=== PATIENT | female | born 1995 | race American Indian/Alaskan Native ===

== ENCOUNTER 2017-03-25 23:51 | Emergency (ER) | payer MEDICAID ==
--- NOTE | 2017-03-26 00:18 | C.PDOC ---
History Of Present Illness 22 year old female who is 6 weeks presents to the ER with a complaint of right ear pain, sore throat for the past 3 days. Patient states she woke up tonight from a nap with a lot of mucous in her throat and felt she had trouble swallowing. Patient reports she tried to clean her right ear with a nisreen pin yesterday which made the pain worse. She also notes she is currently living in an apartment with dry heat. Denies fever, trouble breathing, cough, or nasal congestion. Time Seen by Provider: 03/26/17 00:07 Chief Complaint (Nursing): Shortness Of Breath History Per: Patient History/Exam Limitations: no limitations Onset/Duration Of Symptoms: Days Current Symptoms Are (Timing): Still Present Initiating Event: Other (Not known) Current Respiratory Medications: None Associated Symptoms: Other (Right ear pain, sore throat). denies: Fever, Chest Pain, Bloody Cough Recent travel outside of the [place]: No Past Medical History Reviewed: Historical Data, Nursing Documentation, Vital Signs Vital Signs: Last Vital Signs Temp 98.5 F 03/25/17 23:56 Pulse 96 H 03/25/17 23:56 Resp 16 03/26/17 00:34 BP 129/72 03/25/17 23:56 Pulse Ox 97 03/26/17 00:34 - Medical History PMH: Asthma, HTN Surgical History: Appendectomy Family History: States: Unknown Family Hx - Social History Hx Alcohol Use: Yes Hx Substance Use: No Review Of Systems Constitutional: Negative for: Fever, Chills ENT: Positive for: Ear Pain, Throat Pain. Negative for: Ear Discharge, Nose Congestion Respiratory: Negative for: Cough Physical Exam - Physical Exam Appears: Non-toxic, No Acute Distress Skin: Normal Color, Warm, Dry Head: Atraumatic, Normacephalic Eye(s): bilateral: Normal Inspection Ear(s): Bilateral: TM Obscured By Wax Nose: Normal Oral Mucosa: Moist Throat: Erythema, Exudate, Other (Enlarged tonsils) Neck: Normal, Supple Lymphatic: Adenopathy (Small cervical) Chest: Symmetrical, No Tenderness Cardiovascular: Rhythm Regular Respiratory: Normal Breath Sounds, No Rales, No Rhonchi, No Wheezing Gastrointestinal/Abdominal: Soft, No Tenderness Neurological/Psych: Oriented x3, Normal Speech ED Course And Treatment - Laboratory Results Interpretation Of Abnormal: Rapid strep negative O2 Sat by Pulse Oximetry: 97 (Room air) Pulse Ox Interpretation: Normal Progress Note: Rapid strep ordered. Disposition Counseled Patient/Family Regarding: Studies Performed, Diagnosis, Need For Followup - Disposition Referrals: [facility] [Outside] Disposition: HOME/ ROUTINE Disposition Time: 00:49 Condition: STABLE Additional Instructions: Take Tylenol for pain if needed. Use Debrox in your ear to clear the wax. Encourage plenty of fluids and put a humidifier in your room to help breathing at night. Instructions: Cerumen Impaction (ED), Pharyngitis (ED) Forms: [employer] (South African) - Clinical Impression Clinical Impression: Impacted cerumen of both ears, Sore throat - Scribe Statement The provider has reviewed the documentation as recorded by the Scribzonia Mejia All medical record entries made by the Scribe were at my direction and personally dictated by me. I have reviewed the chart and agree that the record accurately reflects my personal performance of the history, physical exam, medical decision making, and the department course for this patient. I have also personally directed, reviewed, and agree with the discharge instructions and disposition.
[2017-03-26 01:05] VITALS: BP 126/82; PULSE 100; RESP 20; TEMP 97.9; O2SAT 100
== END 2017-03-26 01:05 | disposition home or self-care (01) ==
LOC: C.ER 23:51
DX: H61.23 Impacted cerumen, bilateral (principal); J02.9 Acute pharyngitis, unspecified; I10 Essential (primary) hypertension

== ENCOUNTER 2017-04-21 14:41 | Emergency (ER) | payer MEDICAID ==
[2017-04-21 15:12] VITALS: RESP 20; TEMP 98
[2017-04-21 17:08] LABS: BASO # 0.1 K/uL (0.0-0.2); BASO % 0.9 % (0.0-2.0); EOS # 0.3 K/uL (0.0-0.7); EOS % 3.4 % (0.0-4.0); HEMOGLOBIN 13.2 g/dL (11.0-16.0); LYMPH # 1.4 K/uL (1.0-4.3); LYMPH % 18.6 % (20.0-40.0); MEAN CELL VOLUME 85.2 fL (81.0-99.0); MEAN CORPUSCULAR HEMOGLOBIN 28.7 pg (27.0-31.0); MEAN CORPUSCULAR HGB CONC 33.6 g/dL (33.0-37.0); MEAN PLATELET VOLUME 7.7 fL (7.2-11.7); MONO # 0.5 K/uL (0.0-0.8); MONO % 6.3 % (0.0-10.0); NEUT # 5.5 K/uL (1.8-7.0); NEUT % 70.8 % (50.0-75.0); RBC 4.61 Mil/uL (3.80-5.20); RED CELL DISTRIBUTION WIDTH 13.3 % (11.5-14.5); WHITE BLOOD COUNT 7.7 K/uL (4.8-10.8)
[2017-04-21 17:13] LABS: HCG,QUALITATIVE URINE NEGATIVE (NEGATIVE)
[2017-04-21 17:19] LABS: ALB/GLOB RATIO 1.1 (1.0-2.1); ALBUMIN 4.2 g/dL (3.5-5.0); ALT/SGPT 21 U/L (9-52); AST/SGOT 24 U/L (14-36); BLOOD UREA NITROGEN 8 mg/dL (7-17); CALCIUM 9.2 mg/dl (8.6-10.4); GFR AFRICAN-AMERICAN > 60; GFR NON-AFRICAN AMERICAN > 60
[2017-04-21 17:25] LABS: SQUAMOUS EPITHIAL 8 /hpf (0-5); URINE BACTERIA OCC (<OCC); URINE BILIRUBIN NEGATIVE (NEGATIVE); URINE BLOOD 3+ (NEGATIVE); URINE CLARITY Hazy (Clear); URINE COLOR Yellow (YELLOW); URINE GLUCOSE (UA) NORMAL (Normal); URINE LEUKOCYTE ESTERASE NEG Leu/uL (Negative); URINE NITRATE NEGATIVE (NEGATIVE); URINE PROTEIN 1+ mg/dL (NEGATIVE); URINE UROBILINOGEN NORMAL mg/dL (0.2-1.0)
--- NOTE | 2017-04-21 17:39 | C.PDOC ---
History Of Present Illness 22 year old female with a Hx of lupus presents to the ER with a complaint of vaginal bleeding. Patient believes she is 9 weeks , P:0. Denies fever , chills, nausea, vomiting, or abdominal pain. Time Seen by Provider: 04/21/17 16:02 Chief Complaint (Nursing): Female Genitourinary History Per: Patient History/Exam Limitations: no limitations Current Symptoms Are (Timing): Still Present Quality Of Discomfort: Unable To Describe Associated Symptoms: Other (Vaginal bleeding). denies: Fever, Chills, Nausea, Vomiting Recent travel outside of the [place]: No : 1 Para: 0 Past Medical History Reviewed: Historical Data, Nursing Documentation, Vital Signs Vital Signs: Last Vital Signs Temp 98 F 04/21/17 15:10 Pulse 100 H 04/21/17 17:45 Resp 20 04/21/17 17:45 BP 106/71 04/21/17 17:45 Pulse Ox 97 04/21/17 17:45 - Medical History PMH: Asthma, HTN Surgical History: Appendectomy Family History: States: Unknown Family Hx - Social History Hx Alcohol Use: Yes Hx Substance Use: No Review Of Systems Constitutional: Negative for: Fever, Chills Gastrointestinal: Negative for: Nausea, Vomiting, Abdominal Pain Genitourinary: Positive for: Vaginal Bleeding. Negative for: Dysuria, Hematuria , Vaginal Discharge Physical Exam - Physical Exam Appears: Non-toxic, No Acute Distress, Other (Black female) Skin: Normal Color, Warm, Dry Head: Atraumatic, Normacephalic Eye(s): bilateral: Normal Inspection Oral Mucosa: Moist Chest: Symmetrical, No Tenderness Cardiovascular: Rhythm Regular Respiratory: Normal Breath Sounds, No Rales, No Rhonchi, No Wheezing Gastrointestinal/Abdominal: Soft, No Tenderness, Other (Does no appear gravid) Neurological/Psych: Oriented x3, Normal Speech ED Course And Treatment - Laboratory Results Result Diagrams: 04/21/17 17:03 04/21/17 17:03 O2 Sat by Pulse Oximetry: 96 (Room air) Pulse Ox Interpretation: Normal - CT Scan/US Transvaginal US Other Rad Studies (CT/US): Read By Radiologist, Radiology Report Reviewed CT/US Interpretation: Impression: No evidence of intrauterine gestational sac. If indeed the patient is based on serum beta HCG values, the sonographic findings represent either: Very early IUP; embryonic demise; ectopic gestation. Follow-up with serial quantitative serum beta HCG measurements and post OBGYN follow-up as clinically indicated, since ectopic gestation cannot be excluded based only on sonographic findings. Progress Note: Blood work, UA, tranvaginal US Medical Decision Making Medical Decision Making: NOT by Quant/Qual HCG normal pelvic US without iup/ectopic reassured. Disposition Doctor Will See Patient In The: Office Counseled Patient/Family Regarding: Studies Performed, Diagnosis - Disposition Referrals: [facility] [Outside] [facility] [Outside] Pina Smith MD [Staff Provider] - Disposition: HOME/ ROUTINE Disposition Time: 17:38 Condition: GOOD Additional Instructions: test today is NEGATIVE NORMAL Pelvic Ultrasound Exam. Consider yuliya-conception anticoagulation if interested in conceiving. Follow-up w Dr. Smith as needed. Ask for Hematology Referral as needed. Forms: General Discharge Instructions, [facility] (Uruguayan) - Clinical Impression Clinical Impression: test negative - Scribe Statement The provider has reviewed the documentation as recorded by the Scribzonia Mejia All medical record entries made by the Scribe were at my direction and personally dictated by me. I have reviewed the chart and agree that the record accurately reflects my personal performance of the history, physical exam, medical decision making, and the department course for this patient. I have also personally directed, reviewed, and agree with the discharge instructions and disposition.
[2017-04-21 17:48] VITALS: BP 106/71; PULSE 100
--- NOTE | 2017-04-21 17:51 | US ---
Indication: 9 weeks, vaginal bleeding, history of lupus Comparison: None available. Technique: Real-time transabdominal pelvic ultrasound was performed. In addition a transvaginal pelvic ultrasound was necessary to better depict pelvic anatomy. Findings: The uterus measures approximately 7.2 x 2.8 x 4.7 cm. Anteverted. Endometrial thickness measures approximately 4 mm. No evidence of intrauterine gestational sac. Cervix length measures approximately 2.3 cm. The right ovary measures 3.1 x 2.2 x 2.5 cm. The left ovary measures 3.7 x 1.7 x 2.6 cm. Blood flow was demonstrated to both ovaries. No significant pelvic free fluid identified. Impression: No evidence of intrauterine gestational sac. If indeed the patient is based on serum beta HCG values, the sonographic findings represent either: Very early IUP; embryonic demise; ectopic gestation. Follow-up with serial quantitative serum beta HCG measurements and post OBGYN follow-up as clinically indicated, since ectopic gestation cannot be excluded based only on sonographic findings.
[2017-04-22 00:07] VITALS: O2SAT 96
== END 2017-04-21 17:51 | disposition home or self-care (01) ==
LOC: C.ER 14:41
DX: Z32.02 Encounter for pregnancy test, result negative (principal)

== ENCOUNTER 2017-05-24 01:22 | Emergency (ER) | payer MEDICAID ==
[2017-05-24 02:09] VITALS: BP 123/67; PULSE 91; RESP 16; TEMP 98; O2SAT 100
== END 2017-05-24 02:27 | disposition left against medical advice (07) ==
LOC: C.ER 01:22
DX: Z02.89 Encounter for other administrative examinations (principal); M54.9 Dorsalgia, unspecified

== ENCOUNTER 2017-05-30 12:14 | Emergency (ER) | payer MEDICAID ==
[2017-05-30 12:33] VITALS: RESP 16; TEMP 98.2; O2SAT 99
--- NOTE | 2017-05-30 13:30 | C.PDOC ---
History Of Present Illness 22-year-old female, PMHx includes Lupus, presents to the emergency department with complaints of sore throat, fever, headache, dizziness and ear pain since this morning. Patient did not take any medication for symptoms, denies any sick contacts. Time Seen by Provider: 05/30/17 12:44 Chief Complaint (Nursing): ENT Problem History Per: Patient History/Exam Limitations: no limitations Current Symptoms Are (Timing): Still Present Past Medical History Reviewed: Historical Data, Nursing Documentation, Vital Signs Vital Signs: Last Vital Signs Temp 98.2 F 05/30/17 13:33 Pulse 105 H 05/30/17 13:33 Resp 16 05/30/17 13:33 BP 138/70 05/30/17 13:33 Pulse Ox 99 05/30/17 13:33 - Medical History PMH: Asthma, HTN Surgical History: Appendectomy Family History: States: No Known Family Hx - Social History Hx Alcohol Use: No Hx Substance Use: No - Immunization History Hx Tetanus Toxoid Vaccination: No Hx Influenza Vaccination: No Hx Pneumococcal Vaccination: Yes Review Of Systems Constitutional: Positive for: Fever, Malaise ENT: Positive for: Ear Pain, Nose Congestion, Throat Pain. Negative for: Ear Discharge, Nose Discharge Respiratory: Negative for: Shortness of Breath Gastrointestinal: Negative for: Nausea, Vomiting, Abdominal Pain Musculoskeletal: Negative for: Back Pain Skin: Negative for: Rash Neurological: Positive for: Headache. Negative for: Weakness, Numbness, Dizziness Physical Exam - Physical Exam Appears: Well, Non-toxic, No Acute Distress Skin: Normal Color, Warm, Dry, No Rash Head: Atraumatic, Normacephalic, No Tenderness, No Swelling Eye(s): bilateral: Normal Inspection, PERRL, EOMI Ear(s): Bilateral: Normal Nose: Normal Oral Mucosa: Moist Lips: Normal Appearing Throat: Erythema, No Exudate Neck: Normal ROM, Trachea Midline, Supple (No meningeal signs) Chest: Symmetrical Cardiovascular: Rhythm Regular, No Murmur Respiratory: Normal Breath Sounds, No Accessory Muscle Use, No Rhonchi, No Wheezing Extremity: Normal ROM, No Tenderness, No Deformity, No Swelling Neurological/Psych: Oriented x3, Normal Speech, Normal Cranial Nerves, Normal Motor, Normal Sensation Gait: Steady ED Course And Treatment O2 Sat by Pulse Oximetry: 99 (RA) Pulse Ox Interpretation: Normal Medical Decision Making Medical Decision Making: Patient with complaints of fever and sore throat which radiates to ears and headache which is making her feel dizzy. Patient appears well nontoxic and in no distress. She has no fever, nuchal rigidity and normal vital signs. Rx given. Patient advised to rest and take medications and follow up with PCP. Disposition Counseled Patient/Family Regarding: Need For Followup, Rx Given - Disposition Referrals: [facility] [Outside] [facility] [Outside] [facility] [address] [facility] [Outside] Disposition: HOME/ ROUTINE Disposition Time: 13:30 Condition: GOOD Additional Instructions: Prescriptions sent to [facility] Take antibiotic twice a day Take Tylenol or Motrin alternating every 4-6 hours for Fever 100.4F or higher. Rest and drink plenty of fluids to prevent dehydration. May also try lozenges, or cepacol spray available over the counter. Follow up with your primary medical doctor or clinic in 2-5 days for further evaluation. Prescriptions: Clindamycin [Cleocin] 300 mg PO TID #30 cap Instructions: Sore Throat in Adults Forms: [facility] (Cook Islander) - POA Present On Arrival: None - Clinical Impression Clinical Impression: Otalgia, Pharyngitis - Scribe Statement The provider has reviewed the documentation as recorded by the Scribe (Ruthie Pineda) All medical record entries made by the Scribe were at my direction and personally dictated by me. I have reviewed the chart and agree that the record accurately reflects my personal performance of the history, physical exam, medical decision making, and the department course for this patient. I have also personally directed, reviewed, and agree with the discharge instructions and disposition.
[2017-05-30 13:35] VITALS: BP 138/70; PULSE 105
== END 2017-05-30 13:32 | disposition home or self-care (01) ==
LOC: C.ER 12:14
DX: J02.9 Acute pharyngitis, unspecified (principal); H92.09 Otalgia, unspecified ear